=== PATIENT | male | born 1965 | race Two or more races ===

== ENCOUNTER 2021-06-24 17:40 | Emergency (ER) | payer OTHER ==
[~2021-06-24] VITALS: Ht 170.2 cm; Wt 63.5 kg
== END 2021-06-24 19:28 | disposition home or self-care (01) ==
LOC: ER 17:40
DX: Z89.022 Acquired absence of left finger(s) (principal); W54.0XXA Bitten by dog, initial encounter; Y93.K1 Activity, walking an animal; Y92.9 Unspecified place or not applicable; Y99.9 Unspecified external cause status; I10 Essential (primary) hypertension